=== PATIENT | male | born 1995 | race Two or more races ===

== ENCOUNTER 2016-10-15 20:54 | Emergency (ER) | payer SELFPAY ==
[~2016-10-15] VITALS: Ht 185.4 cm; Wt 68.0 kg
[2016-10-15 21:38] LABS: MEAN CORPUSCULAR HEMOGLOBIN 30.7 PG (27.0-31.0); MEAN CORPUSCULAR HGB CONC 34.9 G/DL (32.0-36.0); MEAN CORPUSCULAR VOLUME 88 FL (80-99); MEAN PLATELET VOLUME 6.3 FL (6.5-10.1); PLATELET COUNT 297 K/UL (150-450); RED BLOOD COUNT 4.91 M/UL (4.70-6.10); RED CELL DISTRIBUTION WIDTH 12.1 % (11.6-14.8); WHITE BLOOD COUNT 13.2 K/UL (4.8-10.8)
[2016-10-15 21:39] LABS: APPEARANCE,URINE CLEAR; KETONES,URINE 3+ (NEGATIVE); LEUKOCYTE ESTERASE ,URINE NEGATIVE (NEGATIVE); NITRITE,URINE NEGATIVE (NEGATIVE); PH,URINE 6 (4.5-8.0); PROTEIN,URINE 1+ (NEGATIVE); UROBILINOGEN,URINE 1 MG/DL (0.0-1.0)
[2016-10-15 21:52] LABS: AMORPHOUS SEDIMENT,UR FEW /LPF; BACTERIA,URINE MODERATE /HPF; FINE GRANULAR CASTS,URINE 0 /LPF
[2016-10-15 21:52] LABS: ACETAMINOPHEN < 10 ug/mL (10-30); ALANINE AMINOTRANSFERASE 8 U/L (3-41); ALBUMIN/GLOBULIN RATIO 1.4 (1.0-2.7); ALCOHOL < 10 mg/dL; ANION GAP 21 (5-15); ASPARTATE AMINO TRANSFERASE 16 U/L (5-40); CALCIUM 7.7 mg/dL (8.6-10.2); CARBON DIOXIDE 17 mEQ/L (20-30); CHLORIDE 106 mEQ/L (98-107); CREATININE 0.7 mg/dL (0.7-1.2); GLOMERULAR FILTRATION RATE > 60 mL/min (>60); HEMOLYSIS 41; POTASSIUM 2.9 mEQ/L (3.4-4.9); SODIUM 144 mEQ/L (135-145); TOTAL PROTEIN 6.1 g/dL (6.6-8.7)
[2016-10-15 22:00] VITALS: BP 132/78
[2016-10-15 22:07] LABS: BAND NEUTROPHILS % (MANUAL) 0 % (0-8); BASOPHILS % (MANUAL) 0 % (0-2); EOSINOPHILS % (MANUAL) 0 % (0-3); LYMPHOCYTES % (MANUAL) 9 % (20-45); NEUTROPHILS % (MANUAL) 88 % (45-75); PLATELET ESTIMATE ADEQUATE; PLATELET MORPHOLOGY NORMAL; TOTAL CELLS COUNTED 100
[2016-10-16 00:05] VITALS: BP 128/71
--- NOTE | 2016-10-16 02:33 | Emergency Room Report ---
History of Present Illness General Chief Complaint: Substance Abuse Source: Patient, EMS Present Illness HPI Is a 21-year-old male with no past medical history. Never been in a psychiatric facility before. He was brought in by a mass and police as a 5150. He was acting erratically and bizarrely. He was throwing stuff outside the window. He was chanting and screaming. Police placed him on a 5150 beats said there were guns in the house. 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 Initially patient was a restrained he was not cooperative. Now he is cooperative and answering questions. Denies any drug use other than marijuana. He said he is visiting from [place] and does guns were not his. He said that he does not use guns. He's not suicidal or homicidal. He said that he was praying because there were no said that was in the house. He was trying to get rid of them. Allergies: Coded Allergies: UNABLE TO ASSESS (Unverified , 10/15/16) Patient History Past Medical History: see triage record, old chart reviewed Past Surgical History: other Family History: none Immunizations: other Reviewed Nursing Documentation: PMH: Agreed, PSxH: Agreed Nursing Documentation-PMH Past Medical History: No History, Except For Review of Systems ENT: Denies: sore throat Cardiovascular: Denies: chest pain, palpitations Gastrointestinal/Abdominal: Denies: diarrhea, nausea, vomiting Musculoskeletal: Denies: back problems Skin: Denies: rash Neurological: Denies: CAMARA, seizures All Other Systems: negative except mentioned in HPI Physical Exam Vital Signs Date Time Temp Pulse Resp B/P Pulse Ox O2 Delivery O2 Flow Rate FiO2 10/15/16 20:47 99.5 110 16 132/78 98 Room Air vitals with tachycardia Sp02 EP Interpretation: reviewed, normal General Appearance: alert/responsive, no apparent distress, non-toxic Head: normocephalic, atraumatic Eyes: PERRL, EOMI ENT: oropharynx normal Neck: supple/symm/no masses Respiratory: effort normal, no rhonchi, no wheezing Cardiovascular: no murmur, gallop, rub Gastrointestinal: non-tender, no mass, non-distended, no rebound/guarding, normal bowel sounds Musculoskeletal: gait & station normal Neurologic: oriented x3, sensory intact, motor strength/tone normal Skin: no rash, normal palpation Medical Decision Making Diagnostic Impression: Primary Impression: Psychosis Qualified Codes: F23 - Brief psychotic disorder ER Course Patient presents with a brief psychosis. He is back to baseline now. He denies any suicidal thought or homicidal thought. Denies any other drug use other than marijuana. Denies any alcohol use. Only reason he is on a 5150 because police stopped him to the house. This is that his house. He was only staying there until Wednesday when he take a flight back to [place]. We'll get psychiatric evaluation in the morning. Lab Results Impression labs unremarkable Last Vital Signs Date Time Temp Pulse Resp B/P Pulse Ox O2 Delivery O2 Flow Rate FiO2 10/16/16 00:05 98.8 89 18 128/71 98 Room Air Status: improved Disposition: HOME, SELF-CARE Condition: Stable Referrals: NOT CHOSEN DOMINGO/,REFERRING (PCP) KELLEY HILL M.D. Oct 16, 2016 02:33
[2016-10-16 02:47] VITALS: BP 122/70
[2016-10-16 05:32] VITALS: BP 116/68
[2016-10-16] MEDS ORDERED: KCl 10% 40mEq/30ml liquid ORAL STA (06:29)
[2016-10-16 07:22] VITALS: BP 104/69
[2016-10-16 11:22] VITALS: BP 110/72
[2016-10-16] MEDS ORDERED: UNOBMED (14:02)
[2016-10-16 14:34] VITALS: BP 116/70
--- NOTE | 2016-10-17 22:04 | Consultation ---
History of Present Illness General Date patient seen: Oct 16, 2016 Chief Complaint: Substance Abuse Present Illness HPI 21-year-old male with no past medical history.he has not been in a psychiatric facility however has psych hx per father. He was brought in by a mass and police as a 5150. He was acting erratically and bizarrely. He was throwing stuff outside the window. He was chanting and screaming. Police placed him on a 5150 beats said there were guns in the house. 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 Initially patient was a restrained he was not cooperative. The pt endorses disorganized speech and behaviour. he is delusional. he is unable to provide any safe self care plan. the pt stated there were four snakes and one cat in the house...they were all evils. the pt was agitated and had difficulty following commands. Allergies: Coded Allergies: No Known Allergies (Unverified , 10/16/16) Medication History Miscellaneous Medications Unable to Obtain Medications (Unable To Obtain Meds), (Reported) Patient History History Provided By: Patient, Family Member, PMD Healthcare decision maker Resuscitation status Advanced Directive on File Review of Systems Constitutional: Reports: no symptoms Psychiatric: Reports: anxiety, emotional problems, hallucinations, prior hx Physical Exam General Appearance: alert, confused, moderate distress, thin Neurologic: alert, responsive, disoriented Height (Feet): 6 Height (Inches): 1.00 Weight (Pounds): 150 Assessment/Plan Status: not improved Assessment/Plan Psychotic d/o nos the pt will be treated with risperdal if not improved the pt should be transferred to psych no safe plan/ no support system the pt is out of town 5150 Ramon Stahl M.D. Oct 17, 2016 22:04
== END 2016-10-16 14:45 | disposition short-term general hospital (02) ==
LOC: EDBD 20:54 → EMR 21:43
DX: F23 Brief psychotic disorder (principal)
CPT/HCPCS: 36415; 80053; 80300; 81003; 84132; 85007; 85025; 87086; 99283; G0480; 80329